=== PATIENT | female | born 1960 | race Caucasian/White ===

== ENCOUNTER → 2018-03-10 | Outpatient (CLI) | payer OTHER ==
[2018-03-14 00:10] LABS: Lyme Disease IgG/IgM Antibodie <0.91 ISR (0.00-0.90); Lyme Disease IgM Ab Quantitati <0.80 index (0.00-0.79)
== END ==
LOC: M WUC 10:48
DX: S30.861A Insect bite (nonvenomous) of abdominal wall, initial encounter (principal); W57.XXXA Bitten or stung by nonvenomous insect and other nonvenomous arthropods, initial encounter; Y92.89 Other specified places as the place of occurrence of the external cause
CPT/HCPCS: 36415

== ENCOUNTER → 2018-04-15 | Outpatient (REF) | payer OTHER ==
[2018-04-17 14:17] LABS: Lyme Disease IgG/IgM Antibodie <0.91 ISR (0.00-0.90); Lyme Disease IgM Ab Quantitati <0.80 index (0.00-0.79)
== END ==
LOC: M LAB REF 21:20
DX: S30.861A Insect bite (nonvenomous) of abdominal wall, initial encounter (principal); M79.1 Myalgia; X58.XXXA Exposure to other specified factors, initial encounter; Y92.9 Unspecified place or not applicable; Y93.9 Activity, unspecified
CPT/HCPCS: 36415

== ENCOUNTER → 2024-09-15 | Outpatient (CLI) | payer OTHER ==
[2024-09-15 17:12] LABS: BASO # 0.1 10^3/uL (0.0-0.2); BASO % 0.5 % (0.0-1.0); EOS # 0.4 10^3/uL (0.0-0.5); EOS % 2.5 % (0.0-3.0); HEMATOCRIT 41.6 % (36.0-47.0); HEMOGLOBIN 13.6 g/dl (12.0-15.5); LYMPH # 3.3 10^3/uL (1.5-5.0); LYMPH % 19.1 % (24.0-44.0); MEAN CORPUSCULAR HEMOGLOBIN 30.6 pg (27.0-33.0); MEAN CORPUSCULAR HGB CONC 32.7 g/dl (32.0-36.5); MEAN CORPUSCULAR VOLUME 93.7 fl (80.0-96.0); MONO # 0.8 10^3/uL (0.0-0.8); MONO % 4.8 % (2.0-8.0); NEUTROPHILS # 12.3 10^3/uL (1.5-8.5); NEUTROPHILS % 72.1 % (36.0-66.0); PLATELET COUNT, AUTOMATED 386 10^3/uL (150-450); RED BLOOD COUNT 4.44 10^6/uL (4.00-5.40); WHITE BLOOD COUNT 17.1 10^3/uL (4.0-10.0)
[2024-09-15 17:41] LABS: ALBUMIN 3.3 G/DL (3.2-5.2); BILIRUBIN,TOTAL 0.4 MG/DL (0.3-1.2); CREATININE FOR GFR 1.77 MG/DL (0.55-1.30); GLOMERULAR FILTRATION RATE 30.8 (>45); PERCENT SATURATION 21.4 % (13.2-45.0); POTASSIUM SERUM 4.7 MMOL/L (3.5-5.1); TOTAL PROTEIN 7.1 G/DL (5.7-8.2)
[2024-09-15 17:42] LABS: PTH INTACT 49.6 PG/ML (18.5-88.0)
[2024-09-15 17:43] LABS: FERRITIN 506.5 NG/ML (7.3-270.7)
[2024-09-15 17:53] LABS: HEMOGLOBIN A1c 7.3 % (4.0-6.0)
== END ==
LOC: M WUC 14:45
PROVIDERS: ATTEND Orthopaedic Surgery
DX: Z01.818 Encounter for other preprocedural examination (principal); M17.9 Osteoarthritis of knee, unspecified

== ENCOUNTER → 2024-11-30 | Outpatient (CLI) | payer OTHER ==
[2024-11-30 14:37] LABS: BASO # 0.1 10^3/uL (0.0-0.2); BASO % 0.4 % (0.0-1.0); EOS # 0.4 10^3/uL (0.0-0.5); EOS % 2.8 % (0.0-3.0); HEMATOCRIT 38.4 % (36.0-47.0); HEMOGLOBIN 12.4 g/dl (12.0-15.5); LYMPH # 3.4 10^3/uL (1.5-5.0); LYMPH % 25.1 % (24.0-44.0); MEAN CORPUSCULAR HGB CONC 32.3 g/dl (32.0-36.5); MEAN CORPUSCULAR VOLUME 92.8 fl (80.0-96.0); MONO # 0.8 10^3/uL (0.0-0.8); NEUTROPHILS # 8.7 10^3/uL (1.5-8.5); NEUTROPHILS % 65.2 % (36.0-66.0); PLATELET COUNT, AUTOMATED 326 10^3/uL (150-450); RED BLOOD COUNT 4.14 10^6/uL (4.00-5.40); WHITE BLOOD COUNT 13.4 10^3/uL (4.0-10.0)
[2024-11-30 15:07] LABS: ALBUMIN 3.5 G/DL (3.2-5.2); BILIRUBIN,TOTAL 0.4 MG/DL (0.3-1.2); CALCIUM LEVEL 9.6 MG/DL (8.3-10.6); CREATININE FOR GFR 1.58 MG/DL (0.55-1.30); GLOMERULAR FILTRATION RATE 35.2 (>45); POTASSIUM SERUM 3.7 MMOL/L (3.5-5.1); TOTAL PROTEIN 6.7 G/DL (5.7-8.2)
== END ==
LOC: M WUC 11:41
PROVIDERS: ATTEND Family Medicine
DX: I10 Essential (primary) hypertension (principal); E08.40 Diabetes mellitus due to underlying condition with diabetic neuropathy, unspecified

== ENCOUNTER → 2025-01-04 | Outpatient (CLI) | payer OTHER | LOC: M RAD 10:35 | PROVIDERS: ATTEND Family Medicine | DX: F17.220 Nicotine dependence, chewing tobacco, uncomplicated (principal) ==

== ENCOUNTER → 2025-01-19 | Outpatient (CLI) | payer OTHER | LOC: M PLARAD 13:45 | PROVIDERS: ATTEND Family Medicine | DX: D38.1 Neoplasm of uncertain behavior of trachea, bronchus and lung (principal) | CPT/HCPCS: 78815; A9552 ==

== ENCOUNTER → 2025-04-22 | Outpatient (CLI) | payer OTHER | LOC: M SLEEP HO 10:32 | PROVIDERS: ATTEND Nurse Practitioner Adult Health | DX: G47.33 Obstructive sleep apnea (adult) (pediatric) (principal) ==

== ENCOUNTER → 2025-07-26 | Outpatient (CLI) | payer OTHER ==
[2025-07-26 13:47] LABS: BASO # 0.1 10^3/uL (0.0-0.2); BASO % 0.4 % (0.0-1.0); EOS # 0.3 10^3/uL (0.0-0.5); EOS % 1.9 % (0.0-3.0); LYMPH # 2.9 10^3/uL (1.5-5.0); LYMPH % 17.8 % (24.0-44.0); MONO # 0.9 10^3/uL (0.0-0.8); MONO % 5.6 % (2.0-8.0); NEUTROPHILS # 11.8 10^3/uL (1.5-8.5); NEUTROPHILS % 73.9 % (36.0-66.0); PLATELET COUNT, AUTOMATED 374 10^3/uL (150-450)
[2025-07-26 13:56] LABS: CREATININE, URINE 184.0 MG/DL; MALB URINE SIEMENS < 3.0 MG/L
[2025-07-26 14:00] LABS: ALT/SGPT 25.0 U/L (7.0-40); AST/SGOT 19.0 U/L (<34); CALCIUM LEVEL 9.9 MG/DL (8.3-10.6); CARBON DIOXIDE LEVEL 30.0 MMOL/L (20-31); CHLORIDE LEVEL 100.0 MMOL/L (98-107); CHOLESTEROL LEVEL 171.0 MG/DL (<200); CHOLESTEROL RISK RATIO 3.86 (<5); CREATININE FOR GFR 1.47 MG/DL (0.55-1.30); ESTIMATED AVERAGE GLUCOSE 140.0 MG/DL (60-110); GLOMERULAR FILTRATION RATE 39.6 (>45); LDL CHOLESTEROL 94.4 MG/DL (<100); NON-HDL-C 126.8 MG/DL; POTASSIUM SERUM 4.0 MMOL/L (3.5-5.1); SODIUM LEVEL 139.0 MMOL/L (136-145); TRIGLYCERIDES LEVEL 162.0 MG/DL (<150)
== END ==
LOC: M WUC 10:15
PROVIDERS: ATTEND Family Medicine
DX: I10 Essential (primary) hypertension (principal); E13.21 Other specified diabetes mellitus with diabetic nephropathy; E78.5 Hyperlipidemia, unspecified